=== PATIENT | female | born 1965 | race Two or more races ===

== ENCOUNTER → 2019-06-15 | Outpatient (CLI) | payer OTHER ==
[~2019-06-15] VITALS: Ht 152.4 cm; Wt 93.0 kg
[~2019-06-15] MED LIST: COZAAR100 MG PO; GLIMEPIRIDE2 MG; LANTUS SOL100 UNIT/1; METFORMIN HCL1000 M2 PO; TOPROL XL50 M1 PO
== END | disposition home or self-care (01) ==
LOC: LAB 07:00 → EDSTATUS 06-23 09:00 → SURH 06-23 09:00
PROVIDERS: ATTEND Surgery
DX: C18.2 Malignant neoplasm of ascending colon (principal); D12.2 Benign neoplasm of ascending colon; R59.0 Localized enlarged lymph nodes; K92.1 Melena

== ENCOUNTER 2019-06-22 07:00 | Day surgery (SDC) | payer OTHER | END 2019-06-22 11:30 | disposition home or self-care (01) | LOC: AMB-ENDOS 07:00 | DX: D12.2 Benign neoplasm of ascending colon (principal) ==

== ENCOUNTER 2020-09-05 06:20 | Day surgery (SDC) | payer OTHER | END 2020-09-05 12:30 | disposition home or self-care (01) | LOC: AMB-ENDOS 06:20 | PROVIDERS: ATTEND Surgery | DX: K62.89 Other specified diseases of anus and rectum (principal); K64.0 First degree hemorrhoids; Z20.822 Contact with and (suspected) exposure to COVID-19 ==